=== PATIENT | male | born 1975 | race Caucasian/White ===

== ENCOUNTER 2019-05-17 15:06 | Inpatient (IN) ==
[2019-05-17] MEDS ORDERED: Haloperidol Lactate 5 MG/ML VIAL ONE (15:09)
[2019-05-17] MEDS ORDERED: *HR* LORazepam 2 MG/ML VIAL ONE (15:09)
[2019-05-17] MEDS ORDERED: Haloperidol Lactate 5 MG/ML VIAL IM ONE ×2 (15:13→21:11)
[2019-05-17] MEDS ORDERED: *HR* LORazepam 2 MG/ML VIAL IM ONE ×2 (15:13→21:11)
[2019-05-17 15:38] LABS: Bilirubin,Urine Negative (Negative); Blood,Urine Negative (Negative); Clarity,Urine Clear (Clear); Color,Urine Yellow (Yellow); Glucose,Urine (UA) Normal (Normal); Ketones,Urine 15 mg/dL (Negative); Leukocyte Esterase,Urine Negative (Negative); Nitrite,Urine Negative (Negative); Protein,Urine Negative (Neg-Trace); Specific Gravity,Urine 1.008 (1.010-1.025); Urobilinogen,Urine Normal (Normal)
[2019-05-17 15:45] LABS: Amphetamine Screen,Urine Negative ng/mL (Cutoff=1000); Barbiturate Screen,Urine Negative ng/mL (Cutoff=200); Benzodiazepines Screen,Urine Negative ng/mL (Cutoff=200); Cannabinoid Screen,Urine Negative ng/mL (Cutoff = 50); Cocaine Screen,Urine Negative ng/mL (Cutoff= 300); Opiate Screen,Urine Negative ng/mL (Cutoff=300); Phencyclidine Screen,Urine Negative ng/mL (Cutoff=25)
[2019-05-17 15:52] LABS: VBG HCO3 21 mEq/L (21-27); VBG PCO2 30 mmHg (41-51); VBG PH 7.46 pH Units (7.32-7.42); VBG PO2 115 mmHg (25-50)
[2019-05-17 16:17] LABS: Albumin 4.6 g/dL (3.5-5.7); Albumin/Globulin Ratio 1.6 (1.1-2.2); Bilirubin,Direct 0.2 mg/dL (0.0-0.2); Bilirubin,Indirect 0.5 mg/dL (0.0-1.0); Bilirubin,Total 0.7 mg/dL (0.3-1.0); Globulin 2.8 g/dL (2.4-3.5); Total Protein 7.4 g/dL (6.4-8.9)
[2019-05-17] MEDS ORDERED: Ibuprofen 800 MG TABLET PO ONE (16:48)
[2019-05-17] MEDS ORDERED: Ziprasidone 20 MG in Water for inj. (sterile) 1 ML IM STA (21:47)
[2019-05-18] MEDS ORDERED: Ziprasidone 10 MG in Water for inj. (sterile) 0.5 ML IM ONE (02:44)
[2019-05-18] MEDS ORDERED: QUEtiapine Fumarate 25 MG TABLET PO PRN (09:50)
[2019-05-18] MEDS ORDERED: haloperidoL 5 MG TABLET PO PRN (09:50)
[2019-05-18] MEDS ORDERED: MOM Conc 10 ML UD.LIQ PO PRN (09:50)
[2019-05-18] MEDS ORDERED: *HR* LORazepam 2 MG/ML VIAL IM PRN (09:50)
[2019-05-18] MEDS ORDERED: *HR* LORazepam 1 MG TABLET PO PRN (09:50)
[2019-05-18] MEDS ORDERED: hydrOXYzine pamoate 25 MG CAPSULE PO PRN (09:50)
[2019-05-18] MEDS ORDERED: Haloperidol Lactate 5 MG/ML VIAL IM PRN (09:50)
[2019-05-18] MEDS: Ibuprofen 400 MG TABLET PO PRN ×2 (12:36→20:49)
[2019-05-18] MEDS: Lurasidone 20 MG TABLET PO SCH (12:36)
[2019-05-19] MEDS: Mag Hydrox/Al Hydrox/Simeth 30 ML UDC PO PRN ×4 (01:23→22:15)
[2019-05-19] MEDS: Silvasorb 44.4 ML TUBE TP SCH (09:38)
[2019-05-19] MEDS: Lurasidone 20 MG TABLET PO SCH (09:39)
[2019-05-19] MEDS: Ibuprofen 400 MG TABLET PO PRN ×2 (15:06→20:52)
[2019-05-20] MEDS: Silvasorb 44.4 ML TUBE TP SCH (08:49)
[2019-05-20] MEDS: Lurasidone 20 MG TABLET PO SCH (08:50)
[2019-05-20] MEDS: Mag Hydrox/Al Hydrox/Simeth 30 ML UDC PO PRN (09:15)
[2019-05-20 09:19] VITALS: BP 127/82
== END 2019-05-20 11:15 | disposition home or self-care (01) | DRG 885 ==
LOC: EMEROOARM 15:06 → 1ANU 05-18 09:44
PROVIDERS: ADMIT Psychiatry & Neurology Psychiatry; ATTEND Psychiatry & Neurology Psychiatry